=== PATIENT | male | born 1975 | race Caucasian/White ===

== ENCOUNTER 2017-03-23 12:47 | Inpatient (IN) ==
--- NOTE | 2017-03-23 13:13 | Emergency Department Note ---
Disposition Clinical Impression: Third degree heart block Fatigue Qualifiers: Fatigue type: unspecified Qualified Code(s): R53.83 - Other fatigue Disposition: Admitted As Inpatient Condition: Fair Referrals: Barrett Urias CNP [Primary Care Provider] - Forms: ED Satisfaction Letter General Adult HPI - General Chief complaint: ED Arrhythmia/Palpitations Stated complaint: Heart rate 30-40 Time Seen by Provider: 03/23/17 12:57 Source: patient Limitations: no limitations Nursing Notes Reviewed: Yes Vital Signs Reviewed: Yes - History of Present Illness HPI Narrative: 41-year-old male who has noted some mild increase in fatigue recently. He was weight lifting at the gym and checked his heart rate was in the 30s. His who is a nurse and checked his heart rate when he was at home and it was again in the 30s. When to see his primary care physician today who recommended he come to the emergency department. Denies fever. Admits to possibly some weight gain over the last few months. Recently went on a long hike and noted he was more fatigued than normal. Radiation: non-radiation Pain Scale: 0 Improves with: nothing Worsens with: nothing Associated symptoms: Reports: denies other symptoms Treatments Prior to Arrival: none - Related Data Home Medications Medication Instructions Recorded Confirmed Klonopin 03/31/16 Previous Rx's Medication Instructions Recorded Naproxen [Naprosyn] 500 mg PO BID #20 tablet 03/31/16 Allergies Allergy/AdvReac Type Severity Reaction Status Date / Time sulfamethoxazole AdvReac Rash Verified 03/31/16 10:17 [From Bactrim] trimethoprim [From Bactrim] AdvReac Rash Verified 03/31/16 10:17 All systems ED: reviewed and negative except as stated. Constitutional: Denies: fever Eyes: Denies: vision change ENT ED: Denies: throat pain Cardiovascular: Denies: chest pain, dyspnea on exertion, orthopnea Respiratory: Denies: cough, dyspnea Gastrointestinal: Denies: abdominal pain, nausea, vomiting Musculoskeletal: Denies: back pain Integumentary: Denies: rash Neurological: Denies: headache Endocrine: Reports: fatigue Past Medical History - Past Medical History Medical history: Reports: hyperlipidemia, other Psychiatric history: Reports: no psych history - Social History Smoking Status: Current every day smoker Smokeless Tobacco Status: No Alcohol use: Reports: occasionally Drug use: Reports: none Physical Exam - General Limitations: no limitations General appearance: alert, in no apparent distress - Head Head exam: atraumatic - Eye Eye exam: Present: normal appearance, PERRL, other (left sided lazy eye, 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 Absent: respiratory distress - Cardiovascular Cardiovascular exam: Present: normal rhythm, bradycardia - Abdominal Exam Abdominal exam: Present: soft, Non-Tender - Extremities Exam Extremities exam: Present: pedal edema (mild +1 edema) - Neurological Exam Neurological exam: Present: alert, oriented X3 - Psychiatric Psychiatric exam: Present: normal affect, normal mood - Skin Skin exam: Present: warm, dry Course Course Narrative: Paged interventional cardiology and spoke with Dr Aguilar on the patients arrival. He said he would send someone to evaluate the patient. TRI on cardiology service at bedside Labwork unremarkable. He has remained hemodynamically stable in the ER. I paged cardiology for recommendations and spoke with Dr Tilley who will provide recommendations after evaluation. My attending paged Dr Gibbs to obtain evaluation in the ED. Dr Gibbs evaluated the patient and will accept the patient to his service. Vital Signs Temperature 98.9 F 03/23/17 12:50 Pulse Rate 37 03/23/17 12:50 Respiratory Rate 16 03/23/17 12:50 Blood Pressure 178/84 03/23/17 12:50 O2 Sat by Pulse Oximetry 97 03/23/17 12:50 Temperature 98.9 F 03/23/17 12:50 Pulse Rate 38 03/23/17 14:54 Respiratory Rate 20 03/23/17 14:54 Blood Pressure 153/77 03/23/17 14:54 O2 Sat by Pulse Oximetry 97 03/23/17 14:54 Oxygen Delivery Oxygen Delivery Room Air Medical Decision Making - Medical Records Medical records reviewed: Yes I reviewed the patient's medical records. - Lab Data Lab results reviewed: Yes I reviewed the patient's lab results. Result diagrams: 03/23/17 13:13 03/23/17 13:13 Lab Results 03/23/17 03/23/17 03/23/17 Range/Units 13:13 13:13 13:13 WBC 9.4 (4.3-11.1) K/mcL RBC 5.59 H (4.19-5.50) M/mcL Hgb 16.3 (12.9-16.9) g/dL Hct 48.9 (37.5-50.1) % MCV 87.5 (83.0-100.0) fL MCH 29.2 (28.0-33.3) pg MCHC 33.3 (31.6-35.5) g/dL RDW 12.5 (11.5-14.5) % Plt Count 292 (140-400) K/mcL MPV 9.6 (9.4-12.4) fL Immature Gran % 0.2 (0-4) % Seg Neutrophils % 44.5 % Lymphocytes % 41.3 % Monocytes % 6.9 % Eosinophils % 6.4 % Basophils % 0.7 % Neutrophils # 4.2 (1.6-8.9) K/mcL Lymphocytes # 3.9 (0.6-4.6) K/mcL Monocytes # 0.7 (0.0-1.3) K/mcL Eosinophils # 0.6 (0.0-0.6) K/mcL Basophils # 0.1 (0.0-0.2) K/mcL PT 11.1 (9.4-12.1) Seconds INR 1.0 APTT 28.4 (26.0-36.0) Seconds Sodium 141 (136-145) mEq/L Potassium 4.7 H (3.5-4.5) mEq/L Chloride 107 (98-109) mEq/L Carbon Dioxide 27 (19-29) mEq/L BUN 14 (8-26) mg/dL Creatinine 0.92 (0.72-1.25) mg/dL Est GFR ( Amer) > 60 (> 60) Est GFR (Non-Af Amer) > 60 (> 60) BUN/Creatinine Ratio 15 (6-26) Glucose 110 H (70-99) mg/dL Calculated Osmolality 293 (280-300) Calcium 9.4 (8.6-10.8) mg/dL Magnesium 2.2 (1.6-2.6) mg/dL Troponin I (0-0.03) ng/mL TSH 1.020 (0.350-4.840) mcIU/mL Lyme Total Antibody (Negative) 03/23/17 03/23/17 Range/Units 13:13 13:13 WBC (4.3-11.1) K/mcL RBC (4.19-5.50) M/mcL Hgb (12.9-16.9) g/dL Hct (37.5-50.1) % MCV (83.0-100.0) fL MCH (28.0-33.3) pg MCHC (31.6-35.5) g/dL RDW (11.5-14.5) % Plt Count (140-400) K/mcL MPV (9.4-12.4) fL Immature Gran % (0-4) % Seg Neutrophils % % Lymphocytes % % Monocytes % % Eosinophils % % Basophils % % Neutrophils # (1.6-8.9) K/mcL Lymphocytes # (0.6-4.6) K/mcL Monocytes # (0.0-1.3) K/mcL Eosinophils # (0.0-0.6) K/mcL Basophils # (0.0-0.2) K/mcL PT (9.4-12.1) Seconds INR APTT (26.0-36.0) Seconds Sodium (136-145) mEq/L Potassium (3.5-4.5) mEq/L Chloride (98-109) mEq/L Carbon Dioxide (19-29) mEq/L BUN (8-26) mg/dL Creatinine (0.72-1.25) mg/dL Est GFR ( Amer) (> 60) Est GFR (Non-Af Amer) (> 60) BUN/Creatinine Ratio (6-26) Glucose (70-99) mg/dL Calculated Osmolality (280-300) Calcium (8.6-10.8) mg/dL Magnesium (1.6-2.6) mg/dL Troponin I 0.01 (0-0.03) ng/mL TSH (0.350-4.840) mcIU/mL Lyme Total Antibody negative (Negative) - Radiology Data Radiology results reviewed: Yes I reviewed the patient's radiology results. - EKG Data EKG #1 EKG attestation: Yes I reviewed and interpreted this EKG. When compared to previous EKG there are: other (3rd degree AV block. HR of 38. No ST deviation. RBBB is present on prior EKG.)
[2017-03-23 13:23] LABS: Basophils # 0.1 K/mcL (0.0-0.2); Basophils % 0.7 %; Eosinophils # 0.6 K/mcL (0.0-0.6); Eosinophils % 6.4 %; Hematocrit 48.9 % (37.5-50.1); Hemoglobin 16.3 g/dL (12.9-16.9); Immature Granulocytes % 0.2 % (0-4); Lymphocytes # 3.9 K/mcL (0.6-4.6); Lymphocytes % 41.3 %; Mean Corpuscular HGB Conc 33.3 g/dL (31.6-35.5); Mean Corpuscular Hemoglobin 29.2 pg (28.0-33.3); Mean Corpuscular Volume 87.5 fL (83.0-100.0); Mean Platelet Volume 9.6 fL (9.4-12.4); Monocytes # 0.7 K/mcL (0.0-1.3); Monocytes % 6.9 %; Neutrophils # 4.2 K/mcL (1.6-8.9); Platelet Count 292 K/mcL (140-400); Red Blood Count 5.59 M/mcL (4.19-5.50); Red Cell Distribution Width 12.5 % (11.5-14.5); Segmented Neutrophils % 44.5 %
[2017-03-23 13:29] LABS: Prothrombin Time 11.1 Seconds (9.4-12.1)
[2017-03-23 13:31] LABS: Activated Partial Thrombo Time 28.4 Seconds (26.0-36.0)
[2017-03-23 13:32] LABS: BUN/Creatinine Ratio 15 (6-26); Blood Urea Nitrogen 14 mg/dL (8-26); Calcium 9.4 mg/dL (8.6-10.8); Carbon Dioxide 27 mEq/L (19-29); Chloride 107 mEq/L (98-109); Glucose 110 mg/dL (70-99); Magnesium 2.2 mg/dL (1.6-2.6); Osmolality,Calculated 293 (280-300); Potassium 4.7 mEq/L (3.5-4.5); Sodium 141 mEq/L (136-145); eGFR For African Americans > 60 (> 60); eGFR For Non-African Americans > 60 (> 60)
--- NOTE | 2017-03-23 14:21 | Emergency Department Note ---
START Narrative - START START: Intervential notified right away on ekg finding of a 3rd degree block. a transitional year saw the patient in the ER. I explained to him that we need to make a decision for this patient right away with his attending. I'm awaiting outbound telemarketing representative repsonse. pt feels weak. no cp. no sob. BP is stable at this time
--- NOTE | 2017-03-23 14:53 | Cardiology Consult Note ---
Date of Encounter: 03/23/17 Time of Encounter: 14:39 Assessment and Plan (1) Third degree heart block by electrocardiogram Current Visit: Yes Status: Acute Bradycardic HR in 30's. EKG showed 3rd degree heart block. Currently hemodynamically stable and asymptomatic. FMHx: Brother DE @ 29 yo. Lyme antibody negative. - Patient is currently stable, EP consulted for pacemaker Discussion w patient/family: The assessment and plan as outlined above was discussed with the patient and/or family members who expressed understanding and agreement. All questions were answered. Thank you for involving us in the care of your patient. Please call with any questions. History of Present Illness Consult date: 03/23/17 Requesting physician: Rg Ryan Consult reason: 3rd degree bundle branch block Chief complaint: slow heart rate History of present illness: Mr. Gallo is a 41 year old male w/ hx of RBBB in 06/2016 presents with slow heart rate. Cardiology is consulted due to 3rd degree heart block found on EKG in the ED. Patient was working out in the gym this morning when he checked his heart rate on a cardiovascular machine and it read in the 30's. Upon having his nurse friend, and his who's a nurse check his pulse, they confirmed that it was slow. Patient came to [facility] ED and heart rate was in 30's and on EKG found 3rd degree heart block. Patient does [place] and previous tick bites, but denies having a circular red rash with central clearing , but does report having generalized rashes. Patient denies fatigue, dyspnea, chest pain, presyncope. Patient in 06/2016 had chest pain and found to have RBBB. At that time nuclear stress was negative for ischemia, gated EF 58%. No other previous cardiac history. Brother had a heart attack at the age of 29, patient was unsure of why. Mother of cardiac causes in her 60's. This note serves as History and Physical. Past Med Surg Social Fam HX - Past Medical History Medical history: hyperlipidemia, other Psychiatric history: no psych history - Social History Smoking Status: Current every day smoker Smokeless Tobacco Status: No Alcohol use: occasionally Drug use: none Medications and Allergies Klonopin 03/31/16 [History] Naproxen [Naprosyn] 500 mg PO BID #20 tablet 03/31/16 [Rx] 3 Allergy/AdvReac Type Severity Reaction Status Date / Time sulfamethoxazole AdvReac Rash Verified 03/31/16 10:17 [From Bactrim] trimethoprim [From Bactrim] AdvReac Rash Verified 03/31/16 10:17 All Systems Review: A 10-system review of systems was performed and is negative for pertinent findings except as documented above in the HPI. - Constitutional Constitutional: snoring, stops breathing during sleep, no anorexia, no chills, no fatigue, no fever(s), no headache(s), no lethargy, no weakness, no weight gain - EENT Eyes: no blurred vision - Cardiovascular Cardiovascular: as per HPI - Respiratory Respiratory: no cough, no dyspnea, no hemoptysis, no wheezing - Gastrointestinal Gastrointestinal: no abdominal pain - Genitourinary Genitourinary: no dysuria, no hematuria, no nocturia - Integumentary Integumentary: no erythema - Neurological Neurological: no focal weakness, no numbness, no syncope, no tingling - Psychiatric Psychiatric: no anxiety, no depression, no hallucinations, no panic attacks Physical Examination Vital Signs, Last 4 Hours Temp Pulse Resp BP Pulse Ox 03/23/17 14:03 39 16 150/95 99 03/23/17 13:16 38 12 162/90 100 03/23/17 12:58 43 14 148/84 98 03/23/17 12:50 98.9 F 37 16 178/84 97 General: Conversant, No Apparent Distress HEENT: Atraumatic, Normocephaly, Mucus Membranes Moist Neck: No JVD, Normal carotid pulses Cardiac: Other (bradycardic) Lungs: Normal Breath Sounds, No Wheeze, Rales, Rhonchi Neuro: Alert and responsive, No focal deficits noted Abdomen: Soft, Non-Tender Musculoskeletal: No Chest Wall Tenderness Extremities: No Clubbing, No Cyanosis, No Edema, Normal Pulses Results 03/23/17 13:13 03/23/17 13:13 Lab Results 03/23/17 03/23/17 03/23/17 13:13 13:13 13:13 WBC 9.4 Hgb 16.3 Hct 48.9 Plt Count 292 INR 1.0 APTT 28.4 Sodium 141 Potassium 4.7 H Chloride 107 Carbon Dioxide 27 BUN 14 Creatinine 0.92 Glucose 110 H Calcium 9.4 Magnesium 2.2 Troponin I TSH 1.020 03/23/17 13:13 WBC Hgb Hct Plt Count INR APTT Sodium Potassium Chloride Carbon Dioxide BUN Creatinine Glucose Calcium Magnesium Troponin I 0.01 TSH Consult Discharge Plan - Plan Referrals: Barrett Urias, [place] [Primary Care Provider] -
[2017-03-23] MEDS ORDERED: *HR* Morphine 2 MG/ML SYRINGE IVP PRN (15:38)
[2017-03-23] MEDS ORDERED: *HR* Atropine Sulfate 1 MG/10 ML SYRINGE IVP PRN (15:41)
--- NOTE | 2017-03-23 15:45 | Event Note ---
Date of Encounter: 03/23/17 Time of Encounter: 15:30 - Cardiology Event Note 41yoM with no previous cardiac history or medication was incidentally found to be bradycardic in the 30s with findings of CHB on EKG at PCP office. He notes worsening exercise capacity over last week and having to force himself to hike a mountain recently as he was particularly winded. He denies thyroid disease, tick bites, rash, or arthralgias. Overall he feels fine except for easy fatiguability and inability to exercise like he wants. He denies syncope, chest /jaw/arm discomfort, dyspnea or palpitations. HR 30s, CHB. BP stable TSH nml, lyme titer negative Plan NPO, TTE leatha and PPM either tomorrow or tonight depending on course. Transcutaneous pads in place and atropine ordered to be at bedside. No urgent indication for temporary pacemaker at this time. Will admit to cardiology service.
[2017-03-23] MEDS ORDERED: 0.9 % Sodium Chloride 500 ML ONE ×2 (16:14→17:37)
[2017-03-23] MEDS ORDERED: Water for inj. (sterile) 0 ML IV ONE (16:14)
[2017-03-23] MEDS ORDERED: Water for inj. (sterile) 10 ML IV ONE (16:16)
[2017-03-23] MEDS ORDERED: D5% in Water (Mini-Bag+) 100 ML IVPB ONE (16:18)
--- NOTE | 2017-03-23 16:50 | Event Note ---
Date of Encounter: 03/23/17 Time of Encounter: 16:35 - Cardiology Event Note Patient admitted with complete heart block. Reports fatigue. ECG reviewed with Dr.John Morales and agrees with complete heart block diagnosis. PLan for pacemaker today. Patient currently undergoing stat echo. Risks versus benefits of permanent pacemaker explained to patient and family. Patient agreeable to proceed. Further recommendations pending pacemaker. Will continue to follow.
[2017-03-23] MEDS ORDERED: Perflutren Lipid Microsphere 1.3 ML in 0.9 % Sodium Chloride 8.7 ML IVP ONE (16:55)
--- NOTE | 2017-03-23 16:56 | Pre-Sedation Evaluation ---
Pre-sedation evaluation - Pre-sedation checklist Date of procedure: 03/23/17 Procedure: pacemaker Recent Vitals: Last Vital Signs Temp 98.9 F 03/23/17 12:50 Pulse 39 03/23/17 16:22 Resp 16 03/23/17 16:22 BP 129/71 03/23/17 16:22 Pulse Ox 97 03/23/17 16:22 H&P (including ROS) documented in medical record: No Previous reaction to sedatives/anesthetics: No Dietary Status: NPO after Midnight Airway Assessment: Patient can open mouth completely, TMJ function normal, Micrognathia (under-bite, receding chin) absent Dentition: No loose teeth or bridges Possible difficult airway: No ASA Classification *see protocol: CLASS II-Mild systemic disease Plan of Care: Pt appropriate candidate for procedure/moderate/conscious sedation , Risks/benefits of procedure/sedation discussed w/ patient/family
[2017-03-23] MEDS ORDERED: *HR* FentaNYL (PF) 100 MCG/2 ML VIAL ONE (17:37)
[2017-03-23] MEDS ORDERED: *HR* Midazolam HCl 2 MG/2 ML VIAL ONE (17:37)
[2017-03-23] MEDS ORDERED: Clindamycin 600 MG/50 ML 1,200 MG/100 ML IV.SOLN IVPB ONE (17:38)
[2017-03-23] MEDS ORDERED: 0.9 % Sodium Chloride 1,000 ML ONE (17:38)
[2017-03-23] MEDS: Ondansetron 4 MG/2 ML VIAL IVP PRN (21:54)
[2017-03-23] MEDS: *HR* HYDROmorphone (PF) 1 MG/ML SYRINGE IVP PRN (22:45)
[2017-03-23] MEDS ORDERED: *HR* HYDROmorphone (PF) 1 MG/ML SYRINGE ONE (22:46)
[2017-03-24] MEDS: *HR* HYDROmorphone (PF) 1 MG/ML SYRINGE IVP PRN ×2 (01:27→04:02)
[2017-03-24] MEDS ORDERED: Clindamycin 900 MG/50 ML 900 MG/50 ML IV.SOLN IVPB SCH (06:00)
[2017-03-24] MEDS ORDERED: *HR* Enoxaparin 40 MG/0.4 ML SYRINGE SQ SCH (06:00)
--- NOTE | 2017-03-24 06:15 | Electrocardiograph Report ---
[facility] Test Date: 2017-03-23 Pat Name: Surjit Gallo Department: 103 Room: 04 Gender: M Logistics Lead: MSC : 1975 Requested By: Domingo Jacques Order Number: [id number] Reading MD: Neftali Zavala MD Measurements Intervals [place] Rate: 38 P: [place]: 0 QRS: 67 QRSD: 129 T: 49 QT: 491 QTc: 411 Interpretive Statements SINUS RHYTHM WITH HIGH GRADE AV BLOCK RIGHT BUNDLE BRANCH BLOCK Electronically Signed On 03-24-2017 6:14:09 EST by Neftali Zavala MD
--- NOTE | 2017-03-24 06:33 | Electrocardiograph Report ---
[facility] Test Date: 2017-03-23 Pat Name: Surjit Gallo Department: 103 Room: 04 Gender: M Television Mechanic: ABIGAIL : 1975 Requested By: Rg Ryan Order Number: [id number] Reading MD: Neftali Zavala MD Measurements Intervals [place] Rate: 38 P: [place]: 0 QRS: 55 QRSD: 130 T: 38 QT: 481 QTc: 400 Interpretive Statements SINUS RHYTHM WITH HIGH GRADE AV BLOCK. NEEDS PACEMAKER. Electronically Signed On 03-24-2017 6:32:07 EST by Neftali Zavala MD
[2017-03-24 07:39] LABS: Basophils # 0.1 K/mcL (0.0-0.2); Basophils % 0.5 %; Eosinophils # 0.1 K/mcL (0.0-0.6); Eosinophils % 1.1 %; Hematocrit 44.7 % (37.5-50.1); Immature Granulocytes % 0.3 % (0-4); Lymphocytes # 2.3 K/mcL (0.6-4.6); Lymphocytes % 17.8 %; Mean Corpuscular HGB Conc 32.2 g/dL (31.6-35.5); Mean Corpuscular Hemoglobin 29.1 pg (28.0-33.3); Mean Corpuscular Volume 90.3 fL (83.0-100.0); Mean Platelet Volume 10.1 fL (9.4-12.4); Monocytes % 7.3 %; Neutrophils # 9.6 K/mcL (1.6-8.9); Nucleated Red Blood Cells 0.2 /100 WBC (0); Platelet Count 215 K/mcL (140-400); Red Blood Count 4.95 M/mcL (4.19-5.50); Red Cell Distribution Width 12.5 % (11.5-14.5)
[2017-03-24 07:45] LABS: BUN/Creatinine Ratio 17 (6-26); Blood Urea Nitrogen 14 mg/dL (8-26); Calcium 8.9 mg/dL (8.6-10.8); Carbon Dioxide 22 mEq/L (19-29); Chloride 103 mEq/L (98-109); Glucose 111 mg/dL (70-99); Osmolality,Calculated 279 (280-300); Sodium 134 mEq/L (136-145); eGFR For African Americans > 60 (> 60); eGFR For Non-African Americans > 60 (> 60)
[2017-03-24 07:46] LABS: Potassium 4.5 mEq/L (3.5-4.5)
[2017-03-24 07:55] LABS: Hemoglobin 14.4 g/dL (12.9-16.9)
--- NOTE | 2017-03-24 10:04 | Discharge Summary ---
<Ismael Cantu - Last Filed: 03/24/17 11:50> Date of Encounter: 03/24/17 Time of Encounter: 10:02 - Discharge Diagnosis (1) Third degree heart block by electrocardiogram Priority: Primary Status: Acute - Discharge Medications Prescriptions: Acetaminophen [Tylenol] 500 mg PO Q6HR PRN 14 Days #60 tablet PRN Reason: Mild Pain Home Medications: Lovastatin [Mevacor] 20 mg PO HS 03/23/17 [History] clonazePAM [Klonopin] 1 mg PO HS 03/23/17 [History] hydrOXYzine pamoate [HydrOXYzine Pamoate] 25 mg PO HS 03/23/17 [History] Acetaminophen [Tylenol] 500 mg PO Q6HR PRN 14 Days #60 tablet 03/24/17 [Rx] Allergies/Adverse Reactions: 3 Allergy/AdvReac Type Severity Reaction Status Date / Time polyethylene glycol Allergy Anaphylaxis Verified 03/23/17 19:37 [From Golytely] polyethylene glycol 3350 Allergy Anaphylaxis Verified 03/23/17 19:37 [From Golytely] potassium chloride Allergy Anaphylaxis Verified 03/23/17 19:37 [From Golytely] sodium [From Golytely] Allergy Anaphylaxis Verified 03/23/17 19:37 sodium bicarbonate Allergy Anaphylaxis Verified 03/23/17 19:37 [From Golytely] sodium chloride Allergy Anaphylaxis Verified 03/23/17 19:37 [From Golytely] sodium sulfate Allergy Anaphylaxis Verified 03/23/17 19:37 [From Golytely] cephalexin [From Keflex] AdvReac Hives Verified 03/23/17 19:37 hydrocodone AdvReac Vomiting Verified 03/23/17 19:37 lamotrigine [From Lamictal] AdvReac Hives Verified 03/23/17 19:37 sulfamethoxazole AdvReac Itching Verified 03/23/17 19:37 [From Bactrim] topiramate AdvReac Hives Verified 03/23/17 19:37 trimethoprim [From Bactrim] AdvReac Itching Verified 03/23/17 19:37 Procedures/tests Complete & Pending: Procedures Performed prior 72 hours Category Date Time Status CL Insert Permanent Pacemaker [CL] Routine Director Of Convention Services 03/23/17 16:32 Completed Date of admission: 03/23/17 15:59 Primary care physician: Barrett Urias CNP Consults: Cardiac Rehabilitation, Cardiology, Electrophysiology, Nurse Navigator Discharging clinician: Ismael Cantu Anticipated date of discharge: 03/24/17 - Patient Status Disposition: Home, Self-Care Condition: Fair Functional capacity at discharge: independent ambulation Overall status at discharge: patient is not back to baseline (in mild pain from incision site) - Discharge Instructions Instructions: Pacemaker (DC), Bradycardia (DC) Follow Up With: Barrett Urias CNP [Primary Care Provider] - - Diet and Activity Activity: as per the cardiac rehab Diet: advance to your usual diet - Hospital Course Hospital course: Mr. Gallo is a 41 year old male who presented to the [facility] with HR in the 30' s, and found to have 3rd degree heart block confirmed on EKG x3. Patient denied chest/jaw/arm pain or discomfort, palpitations, syncope or shortness of breath. And Blood pressure was stabe. Patient TSH and lyme titer returned negative. No acute impressions on CXR. Echo was then ordered and confirmed complete heart block, LVEF 60%, with normal wall motion. Pacemaker placement was determined to be non-urgent. Dr. Dao Morales, caretaker resort, performed pacemaker placement. [employer] Dual chamber pacemaker was placed successfully without incident on 03/23/2017. Post procedure an CXR confirmed placement. CXR the following morning confirmed stable positioning without pneumothorax, pleural effusion or focal consolidation. Patient the day of discharge had complaints of vague pain from incision site. Incision site was non-infectious appearing on discharge. Patient was recommended to rotate between ibuprofen and tylenol for pain. Patient was educated on limitations, and need for follow up with mercantile reporter on discharge. Device was interrogated and function appropriately. No change to medications on discharge. Follow up will be made with [facility]. Time spent discussing smoking cessation with patient: more than 10 minutes ( patient stated that he smokes 4-5 tobacco cigarettes a day, and he says he'll quit smoking after discharge) - Time Spent with Patient Total time spent providing and/or coordinating discharge services: Greater than 30 minutes Specific discharge activities: patient was given handout specifying activity limitations after discharge. Physical Examination General: Conversant, No Apparent Distress HEENT: Atraumatic, Normocephaly, Mucus Membranes Moist Neck: No JVD, Normal carotid pulses Cardiac: Reg Rate and Rhythm, Normal S1 and S2, No Murmur Lungs: Normal Breath Sounds, No Wheeze, Rales, Rhonchi Neuro: Alert and responsive, No focal deficits noted Abdomen: Soft, Non-Tender Skin: No rashes noted on visualized skin Musculoskeletal: No Chest Wall Tenderness Extremities: No Clubbing, No Cyanosis, No Edema, Normal Pulses <TrevaBridgette - Last Filed: 03/24/17 13:32> Date of Encounter: 03/24/17 Procedures/tests Complete & Pending: Procedures Performed prior 72 hours Category Date Time Status CL Insert Permanent Pacemaker [CL] Routine Director Of Convention Services 03/23/17 16:32 Completed Date of admission: 03/23/17 15:59 Primary care physician: Barrett Urias CNP - Hospital Course Hospital course: Mr. Gallo is a 41 year old male - Time Spent with Patient Total time spent providing and/or coordinating discharge services: Physical Examination Vital Signs, Last 4 Hours Temp Pulse Resp BP Pulse Ox 03/24/17 11:30 97.4 F L 64 18 143/83 94 - Attending Attestation I examined this patient and my medical decision-making was reviewed with the Resident Physician. I agree with the documented findings, disposition and treatment plan. Mr. Gallo is now s/p PPM placement after presenting with CHB. Post procedure CXR was unremarkable. Device interrogation demonstrates normal function. Patient will be discharged home with outpatient follow up.
[2017-03-24 11:32] VITALS: BP 143/83
[2017-03-24] MEDS: Ondansetron 4 MG/2 ML VIAL IVP PRN (13:28)
--- NOTE | 2017-03-25 05:37 | Electrocardiograph Report ---
[address] [place], [place] [address] Test Date: 2017-03-23 Pat Name: Surjit Gallo Department: 103 Room: 2A Gender: Supervisor Rolling Room: : 1975 Requested By: Rg Ryan Order Number: [id number] Reading MD: Marcio Gibbs MD Measurements Intervals [place] Rate: 38 P: [place]: 0 QRS: 64 QRSD: 129 T: 43 QT: 476 QTc: 395 Interpretive Statements Complete AV block RIGHT BUNDLE BRANCH BLOCK Electronically Signed On 03-25-2017 5:36:12 EST by Marcio Gibbs MD
== END 2017-03-24 14:01 | disposition home or self-care (01) | DRG 244 ==
LOC: EMEROO 12:47 → ICNU 15:59 → 2ANU 03-24 08:50
PROVIDERS: ADMIT Emergency Medicine; ATTEND Emergency Medicine